=== PATIENT | female | born 2000 | race African-American/Black ===

== ENCOUNTER 2020-08-10 09:18 | Emergency (ER) | payer MEDICAID ==
[~2020-08-10] VITALS: Ht 180.3 cm; Wt 77.1 kg
[2020-08-10 09:30] VITALS: BP 110/70
--- NOTE | 2020-08-10 09:30 | NUR ---
ED Nurse Note: Pt wheeled into the ED from home c/o lower abdominal pain and cramping for 1 day. Pt denies n/v/d. Pt states her last period was last month and may be . Pt is alert oriented x4, breathing even and unlabored, no acute distress, other vitals stable as documented.
--- NOTE | 2020-08-10 09:35 | Emergency Room Report ---
History of Present Illness General Chief Complaint: Abdominal Pain Source: Patient Present Illness HPI Patient is a 20-year-old female presents the ER complaining of lower abdominal pain since yesterday. She states that her last menstrual period was a month ago but states that she could be . Patient denies any fever or chills. She denies any nausea or vomiting. She denies any dysuria or hematuria. She denies any vaginal bleeding. She denies any history of similar symptoms in the past. She denies any history of abdominal surgeries. 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: No Patient History Last Menstrual Period: 06/22/2020 Now: Yes Reviewed Nursing Documentation: PMH: Agreed; PSxH: Agreed Nursing Documentation-PMH Past Medical History: No Stated History Review of Systems All Other Systems: negative except mentioned in HPI Physical Exam Vital Signs Date Time Temp Pulse Resp B/P (MAP) Pulse Ox O2 Delivery O2 Flow Rate FiO2 08/10/20 09:23 98.2 73 16 104/66 (79) 95 Room Air Sp02 EP Interpretation: reviewed, normal General Appearance: well appearing, GCS 15, mild distress Head: normocephalic, atraumatic Eyes: bilateral eye normal inspection, bilateral eye PERRL ENT: hearing grossly normal, normal pharynx, no angioedema, normal voice Neck: full range of motion, supple/symm/no masses Respiratory: chest non-tender, lungs clear, normal breath sounds, speaking full sentences Cardiovascular #1: regular rate, rhythm, no edema Gastrointestinal: soft, other - Suprapubic, left lower quadrant and right lower quadrant abdominal tenderness to palpation with no rebound Rectal: deferred Genitourinary: no CVA tenderness Musculoskeletal: normal range of motion Neurologic: executive marketing assistant III-XII nml as tested, oriented x3 Psychiatric: no suicidal/homicidal ideation Skin: no rash Lymphatic: no adenopathy Medical Decision Making Diagnostic Impression: Primary Impression: Ovarian cyst Additional Impression: Methamphetamine abuse ER Course Patient's labs demonstrate no significant acute abnormalities. Patient is afebrile. Her white count is normal. CT demonstrates ovarian cyst. Pelvic ultrasound demonstrates septated ovarian cyst with no evidence for torsion. I printed out a copy of the ultrasound result along with discharge paperwork noting that the patient needed to get a follow-up ultrasound in 6 weeks. Patient's UDS positive for methamphetamines. Prior to patient receiving her discharge paperwork she ripped out her IV and walked out of the emergency room. Laboratory Tests Test 08/10/20 09:35 White Blood Count 8.4 K/UL (4.8-10.8) Red Blood Count 5.47 M/UL (4.20-5.40) H Hemoglobin 13.0 G/DL (12.0-16.0) Hematocrit 40.7 % (37.0-47.0) Mean Corpuscular Volume 74 FL (80-99) L Mean Corpuscular Hemoglobin 23.8 PG (27.0-31.0) L Mean Corpuscular Hemoglobin Concent 32.0 G/DL (32.0-36.0) Red Cell Distribution Width 12.1 % (11.6-14.8) Platelet Count 167 K/UL (150-450) Mean Platelet Volume 8.0 FL (6.5-10.1) Neutrophils (%) (Auto) 62.9 % (45.0-75.0) Lymphocytes (%) (Auto) 26.6 % (20.0-45.0) Monocytes (%) (Auto) 7.9 % (1.0-10.0) Eosinophils (%) (Auto) 1.5 % (0.0-3.0) Basophils (%) (Auto) 1.2 % (0.0-2.0) Prothrombin Time 11.2 SEC (9.30-11.50) Prothrombin Time INR 1.0 (0.9-1.1) Activated Partial Thromboplast Time 27 SEC (23-33) Urine Color Yellow Urine Appearance Slightly cloudy Urine pH 7 (4.5-8.0) Urine Specific [place] 1.010 (1.005-1.035) Urine Protein 1+ (NEGATIVE) H Urine Glucose (UA) Negative (NEGATIVE) Urine Ketones 1+ (NEGATIVE) H Urine Blood Negative (NEGATIVE) Urine Nitrite Negative (NEGATIVE) Urine Bilirubin 1+ (NEGATIVE) H Urine Ictotest Negative (NEGATIVE) Urine Urobilinogen 8 MG/DL (0.0-1.0) H Urine Leukocyte Esterase 1+ (NEGATIVE) H Urine RBC 0-2 /HPF (0 - 2) Urine WBC 2-4 /HPF (0 - 2) Urine Squamous Epithelial Cells Few /LPF (NONE/OCC) Urine Bacteria Few /HPF (NONE) Urine Mucus Moderate /LPF (NONE/OCC) H Urine HCG, Qualitative Negative (NEGATIVE) Sodium Level 141 MMOL/L (136-145) Potassium Level 3.6 MMOL/L (3.5-5.1) Chloride Level 106 MMOL/L (98-107) Carbon Dioxide Level 24 MMOL/L (21-32) Anion Gap 11 mmol/L (5-15) Blood Urea Nitrogen 9 mg/dL (7-18) Creatinine 0.8 MG/DL (0.55-1.30) Estimated Glomerular Filtration Rate > 60 mL/min (>60) Glucose Level 88 MG/DL (74-106) Calcium Level 9.2 MG/DL (8.5-10.1) Magnesium Level 2.1 MG/DL (1.8-2.4) Total Bilirubin 0.7 MG/DL (0.2-1.0) Aspartate Amino Transferase (AST) 11 U/L (15-37) L Alanine Aminotransferase (ALT) 16 U/L (12-78) Alkaline Phosphatase 61 U/L (46-116) Total Protein 7.9 G/DL (6.4-8.2) Albumin 3.8 G/DL (3.4-5.0) Globulin 4.1 g/dL Albumin/Globulin Ratio 0.9 (1.0-2.7) L Lipase 119 U/L (73-393) Urine Opiates Screen Negative (NEGATIVE) Urine Barbiturates Screen Negative (NEGATIVE) Phencyclidine (PCP) Screen Negative (NEGATIVE) Urine Amphetamines Screen Positive (NEGATIVE) H Urine Benzodiazepines Screen Negative (NEGATIVE) Urine Cocaine Screen Negative (NEGATIVE) Urine Marijuana (THC) Screen Positive (NEGATIVE) H Last Vital Signs Date Time Temp Pulse Resp B/P (MAP) Pulse Ox O2 Delivery O2 Flow Rate FiO2 08/10/20 09:23 98.2 73 16 104/66 (79) 95 Room Air Disposition: HOME, SELF-CARE Condition: Stable Scripts Ibuprofen* (MOTRIN*) 600 Mg Tablet 600 MG ORAL FOUR TIMES A DAY, #30 TAB 0 Refills Prov: Debi Bender M.D. 08/10/20 Additional Instructions: Please note that this report is being documented using [facility] technology. This can lead to erroneous entry secondary to incorrect interpretation by the dictating instrument. Debi Bender M.D. Aug 10, 2020 09:35
--- NOTE | 2020-08-10 09:35 | NUR ---
ED Nurse Note: blood and urine sent to lab.
[2020-08-10 09:40] LABS: APPEARANCE,URINE SLIGHTLY CLOUDY; BILIRUBIN, URINE 1+ (NEGATIVE); GLUCOSE, URINE (UA) NEGATIVE (NEGATIVE); KETONES,URINE 1+ (NEGATIVE); LEUKOCYTE ESTERASE ,URINE 1+ (NEGATIVE); NITRITE,URINE NEGATIVE (NEGATIVE); PH,URINE 7 (4.5-8.0); PROTEIN,URINE 1+ (NEGATIVE); UROBILINOGEN,URINE 8 MG/DL (0.0-1.0)
[2020-08-10 09:41] LABS: COLOR,URINE YELLOW
[2020-08-10] MEDS ORDERED: Omnipaque-300 100ml vial INJ PRN (09:45)
[2020-08-10] MEDS ORDERED: fentaNYL 100 mcg/2 mL IV ONE (09:45)
[2020-08-10] MEDS ORDERED: Acetaminophen 500mg (ES) tab ORAL ONE (09:45)
[2020-08-10 09:54] LABS: BASOPHILS % (AUTO) 1.2 % (0.0-2.0); EOSINOPHILS % (AUTO) 1.5 % (0.0-3.0); HEMATOCRIT 40.7 % (37.0-47.0); LYMPHOCYTES % (AUTO) 26.6 % (20.0-45.0); MEAN CORPUSCULAR VOLUME 74 FL (80-99); MONOCYTES % (AUTO) 7.9 % (1.0-10.0); NEUTROPHILS % (AUTO) 62.9 % (45.0-75.0); PLATELET COUNT 167 K/UL (150-450); RED BLOOD COUNT 5.47 M/UL (4.20-5.40); RED CELL DISTRIBUTION WIDTH 12.1 % (11.6-14.8); WHITE BLOOD COUNT 8.4 K/UL (4.8-10.8)
--- NOTE | 2020-08-10 10:02 | NUR ---
ED Nurse Note: US tech at bedside performing US abdomen
[2020-08-10 10:07] LABS: ANION GAP 11 mmol/L (5-15); BLOOD UREA NITROGEN 9 mg/dL (7-18); CALCIUM 9.2 MG/DL (8.5-10.1); CARBON DIOXIDE 24 MMOL/L (21-32); CHLORIDE 106 MMOL/L (98-107); CREATININE 0.8 MG/DL (0.55-1.30); POTASSIUM 3.6 MMOL/L (3.5-5.1); SODIUM 141 MMOL/L (136-145)
[2020-08-10 10:09] LABS: ALANINE AMINOTRANSFERASE 16 U/L (12-78); ALBUMIN 3.8 G/DL (3.4-5.0); ALBUMIN/GLOBULIN RATIO 0.9 (1.0-2.7); ALKALINE PHOSPHATASE 61 U/L (46-116); ASPARTATE AMINO TRANSFERASE 11 U/L (15-37); BILIRUBIN,TOTAL 0.7 MG/DL (0.2-1.0)
--- NOTE | 2020-08-10 10:55 | NUR ---
ED Nurse Note: pt went to CT via gurney with CT staff, pt in stable condition.
[2020-08-10 11:05] VITALS: BP 102/76
--- NOTE | 2020-08-10 11:11 | NUR ---
ED Nurse Note: pt back from CT in stable condition.
--- NOTE | 2020-08-10 11:34 | Diagnostic Imaging Report ---
EXAM: CT CT Abdomen Pelvis w/Contrast INDICATION: Abdominal pelvic pain. COMPARISON: None TECHNIQUE: Axial images were obtained through the abdomen pelvis with intravenous contrast. Sagittal and coronal reformats are generated. All CT scans at this facility are performed using dose modulation techniques as appropriate to a performed exam including the following: automated exposure control with adjustment of the mA and/or kV according to patient size. RADIATION DOSE: CTDIvol: 5.3 mGy DLP: 274.4 mGy-cm Dose information generated by the CT scanner is available in PACS. FINDINGS: The lung bases are clear. In the inferior tip of the right lobe of the liver, there is segmental area of increased enhancement noted. It is non mass-like. This could be secondary to an area of intrahepatic arterioportal shunting. No discrete mass or ductal dilatation noted. The spleen is unremarkable. Gallbladder is without sludge or stone and there is no wall thickening. The pancreas is unremarkable. Adrenals are normal in morphology. The kidneys are normal in size, shape and axis. Small bowel loops are nondistended. The colon is also nondistended with average amount of stool. The appendix is normal. Uterus is midline. There is a cystic structure in the right adnexa measuring 4.5 x 3.7cm. A small amount of free fluid noted in the cul-de-sac perhaps physiologic. There is no free air. No pathologic adenopathy demonstrated. Urinary bladder appears unremarkable. There is no suspicious superficial soft tissue or osseous abnormality. IMPRESSION: RIGHT ADNEXAL CYST AND SMALL AMOUNT OF FREE FLUID IN THE CUL-DE-SAC PERHAPS PHYSIOLOGIC. CONSIDER CORRELATION WITH PELVIC ULTRASOUND. OTHERWISE NO SIGN OF ACUTE DISEASE IN THE ABDOMEN AND PELVIS. INCIDENTAL FINDING OF A SEGMENTAL NON MASS-LIKE AREA OF INCREASED ENHANCEMENT IN THE INFERIOR RIGHT LOBE OF THE LIVER. THIS COULD BE SECONDARY TO AN AREA OF INTRAHEPATIC ARTERIOPORTAL SHUNTING.
--- NOTE | 2020-08-10 11:37 | Diagnostic Imaging Report ---
EXAM: US Pelvic Transabdominal, US Transvaginal (Non ) CLINICAL HISTORY: Pelvic pain. Negative test. COMPARISON: None TECHNIQUE: Ultrasound examination of the pelvis includes grayscale images, and color and spectral doppler analysis. FINDINGS: Transabdominal and transvaginal technique utilized. The uterus measures 6.8 x 2.8 x 2.8 cm. Myometrium is homogeneous. Endometrial stripe is 9 mm. Right ovary measures 5.6 x 4.7 x 7.8 cm containing a complex septated cyst. Left ovary measures 3.5 x 2.3 x 2.7 cm. Normal vascular flow seen bilaterally. There is a small amount of free fluid. IMPRESSION: COMPLEX SEPTATED RIGHT OVARIAN CYST. SMALL AMOUNT OF FREE FLUID. FINDINGS MAY BE PHYSIOLOGIC BUT SHOULD BE FOLLOWED TO COMPLETE RESOLUTION. RECOMMEND FOLLOW-UP STUDY IN 6 WEEKS TO RESTUDY THE PATIENT AT A DIFFERENT PHASE OF HER CYCLE.
[2020-08-10] MEDS ORDERED: IBUPROFEN600 M1 ORAL (11:43)
--- NOTE | 2020-08-10 11:55 | NUR ---
ED Nurse Note: pt seen talking on the [place] and became angry. pt then disconnected her self from manager cardiac. IV was removed by RN. Pt then walked out of ED without discharge paper. pt took all her belongings.
== END 2020-08-10 11:55 | disposition home or self-care (01) ==
LOC: EMR 09:34
DX: N83.201 Unspecified ovarian cyst, right side (principal)
CPT/HCPCS: 36415; 74177; 76830; 76856; 80053; 80307; 81003; 81025; 83690; 83735; 85025; 85610; 85730; 86850; 86900; 86901; 96361; 96374; J3010; J7030; Q9965; Z7502; 99284